=== PATIENT | male | born 1980 | race African-American/Black ===

== ENCOUNTER 2019-02-18 17:10 | Emergency (ER) | payer OTHER ==
[~2019-02-18] VITALS: Ht 177.8 cm; Wt 72.0 kg
[2019-02-18] MEDS ORDERED: ALBUTEROL (0.083%) 2.5MG/3ML NEB ONE (18:58)
[2019-02-18] MEDS ORDERED: LORAZEPAM 2MG/ML CPJ IV ONE (19:00)
[2019-02-18] MEDS ORDERED: ALBUTEROL (0.5%) 2.5MG/0.5ML NEB HHN ONE (19:00)
[2019-02-18] MEDS ORDERED: KETOROLAC 30MG/ML VIAL IV ONE (19:00)
[2019-02-18 20:13] VITALS: BP 133/79
== END 2019-02-18 20:41 | disposition home or self-care (01) ==
LOC: ER 17:10
DX: R09.1 Pleurisy (principal); R06.02 Shortness of breath; R07.89 Other chest pain
CPT/HCPCS: 71045; 93005; 94640; 96374; 96375; 99283; J1885; J2060; J7611; Z7610